=== PATIENT | male | born 1995 | race Two or more races ===

== ENCOUNTER 2021-06-07 10:26 | Emergency (ER) | payer MEDICAID ==
[~2021-06-07] VITALS: Ht 177.8 cm; Wt 79.1 kg
[2021-06-07] MEDS ORDERED: ketorolac trometh inj. 60 MG/2 ML VIAL IM ONE (10:40)
[2021-06-07 11:28] VITALS: BP 130/86
== END 2021-06-07 11:29 | disposition home or self-care (01) ==
LOC: ER 10:27
DX: R07.81 Pleurodynia (principal); R05.9 Cough, unspecified; K59.00 Constipation, unspecified; F15.90 Other stimulant use, unspecified, uncomplicated; Z72.0 Tobacco use
CPT/HCPCS: 71045; 93005; 96372; 99283; 99406; J1885